=== PATIENT | male | born 1955 | race Caucasian/White ===

== ENCOUNTER 2016-08-24 23:07 | Emergency (ER) | payer OTHER ==
[~2016-08-24] VITALS: Ht 180.3 cm; Wt 83.9 kg
[2016-08-24 23:31] VITALS: BP 151/95
--- NOTE | 2016-08-25 00:41 | PHYS DOC ---
Past Medical History Past Medical History: Bipolar, Other Additional Past Medical Histor: MANIC DEPRESSIVE Past Surgical History: Other Additional Past Surgical Histo: HERNIA, EYE Alcohol Use: None Drug Use: Cocaine, Marijuana Adult General Chief Complaint Chief Complaint: Insomnia HPI HPI Patient is a 61 year old homeless male patient who presents today stating he has not slept for 2 days. Patient states he was recently discharged from a psych facility and was supposed to be given Ambien. He states has not had the Ambien for the last 2 days. Patient denies any other symptoms. He is requesting to be given Ambien and be discharge to a homeless [facility]. Review of Systems Review of Systems Constitutional: Denies fever or chills [] Eyes: Denies change in visual acuity, redness, or eye pain [] HENT: Denies nasal congestion or sore throat [] Respiratory: Denies cough or shortness of breath [] Cardiovascular: No additional information not addressed in HPI [] GI: Denies abdominal pain, nausea, vomiting, bloody stools or diarrhea [] : Denies dysuria or hematuria [] Musculoskeletal: Denies back pain or joint pain [] Integument: Denies rash or skin lesions [] Neurologic: Denies headache, focal weakness or sensory changes [] Endocrine: Denies polyuria or polydipsia [] psych:insomnia Allergies Allergies Allergies Coded Allergies Type Severity Reaction Last Updated Verified No Known Drug Allergies 08/24/16 No Physical Exam Physical Exam Constitutional: Well developed, well nourished, no acute distress, non-toxic appearance. [] HENT: Normocephalic, atraumatic, bilateral external ears normal, oropharynx moist, no oral exudates, nose normal. [] Eyes: PERRLA, EOMI, conjunctiva normal, no discharge. [] Neck: Normal range of motion, no tenderness, supple, no stridor. [] Cardiovascular:Heart rate regular rhythm, no murmur [] Lungs & Thorax: Bilateral breath sounds clear to auscultation [] Abdomen: Bowel sounds normal, soft, no tenderness, no masses, no pulsatile masses. [] Skin: Warm, dry, no erythema, no rash. [] Back: No tenderness, no CVA tenderness. [] Extremities: No tenderness, no cyanosis, no clubbing, ROM intact, no edema. [] Neurologic: Alert and oriented X 3, normal motor function, normal sensory function, no focal deficits noted. [] Psychologic: appears slow though this looks like his normal. Current Patient Data Vital Signs Vital Signs Date Time Temp Pulse Resp B/P Pulse Ox O2 Delivery O2 Flow Rate FiO2 08/24/16 23:31 97.0 111 20 98 Room Air 97.0 EKG EKG [] Radiology/Procedures Radiology/Procedures [] Course & Med Decision Making Course & Med Decision Making Pertinent Labs and Imaging studies reviewed. (See chart for details) Patient is in the ED complaining of insomnia for the last 2 days. He states he normally takes Ambien every night but has not had it for the last 2 days. He states he was recently released from a psych facility and they did not give him a prescription for Ambien. He is currently homeless. He states he'll be discharged back to the homeless [facility]. He was given Ambien in the ED and discharged. I recommended he follows up with his doctor for insomnia and Ambien prescriptions. Dragon Disclaimer Dragon Disclaimer This electronic medical record was generated, in whole or in part, using a voice recognition dictation system. Departure Departure Impression: Primary Impression: Insomnia disorder Disposition: HOME, SELF-CARE Condition: STABLE Referrals: NO PCP (PCP) Follow-up with your own doctor as soon as possible Patient Instructions: Insomnia-Brief Additional Instructions: You were seen for insomnia. We gave you Ambien tonight. You cannot drive or operate machinery on this medication for the next 12 hours. Follow-up with your own doctor as soon as you can refill of your Ambien. Problem Qualifiers Primary Impression: Insomnia disorder Insomnia type: unspecified Qualified Code: G47.00 - Insomnia, unspecified JOSEFINA SO APRN Aug 25, 2016 00:41
[2016-08-25] MEDS ORDERED: ZOLPIDEM 5 MG TABLET. PO ONE (01:00)
== END 2016-08-25 01:03 | disposition home or self-care (01) ==
LOC: ER 23:07
DX: G47.00 Insomnia, unspecified (principal); F31.9 Bipolar disorder, unspecified; F12.10 Cannabis abuse, uncomplicated; Z59.0 Homelessness
CPT/HCPCS: 99282

== ENCOUNTER 2020-10-12 02:56 | Emergency (ER) | payer MEDICAID, OTHER ==
[~2020-10-12] VITALS: Ht 180.3 cm; Wt 84.1 kg
[2020-10-12] MEDS ORDERED: PRED20TA PO (03:03)
[2020-10-12] MEDS ORDERED: LORA10TA68 PO (03:05)
--- NOTE | 2020-10-12 03:05 | PHYS DOC ---
Past Medical History Past Medical History: Bipolar, Other Additional Past Medical Histor: MANIC DEPRESSIVE Past Surgical History: Other Additional Past Surgical Histo: HERNIA, EYE Smoking Status: Current Every Day Smoker Additional Information: 20 year smoker, 6 cigarettes per day Alcohol Use: None Drug Use: Cocaine, Marijuana General Adult HPI: HPI: Patient is a 65 year old male who presents to [facility] ED with complaints of shortness of breath and nasal congestion. He was brought to ED by EMS from a senior care. He reports that symptoms began 2 days ago, and have never occurred at this intensity before. He denies fevers, but reports that he has had some "shaking" at night. He has been using breathing treatments and an inhaler to manage his symptoms to little effect. Patient has not used any decongestants. He reports that he has also been coughing up clear/yellow phlegm. Review of Systems: Review of Systems: Constitutional: Denies fever, reports some chills Eyes: Denies redness or eye pain HENT: Reports nasal congestion, denies sore throat Respiratory: Reports cough and shortness of breath Cardiovascular: Denies chest pain, reports occasional palpitations GI: Reports abdominal pain, diarrhea, constipation : Denies dysuria or hematuria Musculoskeletal: Denies back pain or joint pain Integument: Denies rash or skin lesions Neurologic: Denies headache, focal weakness or sensory changes Complete systems were reviewed and found to be within normal limits, except as documented in this note. Heart Score: C/O Chest Pain: N/A Family History: Family History: No pertinent family history Allergies: Allergies: Allergies Coded Allergies Type Severity Reaction Last Updated Verified No Known Drug Allergies 08/24/16 No Physical Exam: PE: Constitutional: Well developed, well nourished, no acute distress, non-toxic appearance HENT: Normocephalic, atraumatic Eyes: PERRL, EOMI, conjunctiva normal, no discharge Neck: Normal range of motion, no tenderness, supple Lungs & Thorax: Slight respiratory distress, some wheezing heard on auscultation, equal chest rise and fall Abdomen: Soft, no tenderness Skin: Warm, dry, no erythema, no rash Back: No tenderness, no CVA tenderness Extremities: No tenderness, ROM intact, no edema Neurologic: Alert and oriented X 3, normal motor function, normal sensory function, no focal deficits noted Psychologic: Affect normal, judgment normal Current Patient Data: Labs: Not obtained EKG: EKG: Not obtained Radiology/Procedures: Radiology/Procedures: None obtained Course & Med Decision Making: Course & Med Decision Making Patient is a 65 year old male who presents to [facility] ED with complaints of shortness of breath and nasal congestion. Patient given 10 mg PO dexamethasone in the ED. Patient will receive prescription for claritin and prednisone for symptom control. Azithromycin prescribed for possible infection. Patient counseled on importance of smoking cessation, humidifier use while sleeping, and over the counter claritin if needed. Patient stable for discharge with outpatient follow-up with PCP. Discussed findings and plan with patient, who acknowledges understanding and agreement. Pertinent Labs and Imaging studies reviewed. (See chart for details) Dragon Disclaimer: July Disclaimer: This electronic medical record was generated, in whole or in part, using a voice recognition dictation system. Departure Departure Impression: Primary Impression: Upper respiratory infection Qualified Codes: J06.9 - Acute upper respiratory infection, unspecified Disposition: 01 DC HOME SELF CARE/HOMELESS Condition: STABLE Referrals: NO PCP (PCP) Patient Instructions: Upper Respiratory Infection, Adult, [id number] Additional Instructions: Use humidifier at night when sleeping. Discontinue smoking. May take over the counter claritin as needed for continued nasal congestion. Scripts Azithromycin (ZITHROMAX) 250 Mg Tablet 1 PKG PO UD for bronchitis, #6 TAB Take 2 tablets on day 1 and then 1 tablet each day for the next 4 days as directed Prov: HERRERA OWENS DO 10/12/20 Loratadine (CLARITIN) 10 Mg Tablet 1 TAB PO DAILY for allergy symptoms, #30 TAB 0 Refills Prov: HERRERA OWENS DO 10/12/20 Prednisone (PREDNISONE) 20 Mg Tablet 2 TAB PO DAILY, #8 TAB Start this medication tomorrow, Tuesday10/13/20 Prov: HERRERA OWENS DO 10/12/20 HERRERA OWENS DO Oct 12, 2020 03:05
[2020-10-12] MEDS ORDERED: AZIT250T PO (03:12)
[2020-10-12] MEDS ORDERED: DEXAMETHASONE 4 MG TABLET PO ONE (03:30)
== END 2020-10-12 03:47 | disposition home or self-care (01) ==
LOC: ER 02:56
DX: J06.9 Acute upper respiratory infection, unspecified (principal); R09.81 Nasal congestion; R06.02 Shortness of breath; R05 Cough; F31.9 Bipolar disorder, unspecified; F17.210 Nicotine dependence, cigarettes, uncomplicated; F12.90 Cannabis use, unspecified, uncomplicated; F14.90 Cocaine use, unspecified, uncomplicated; Z98.890 Other specified postprocedural states
CPT/HCPCS: 99283